=== PATIENT | male | born 2000 | race Caucasian/White ===

== ENCOUNTER 2022-04-11 18:43 | Emergency (ER) | payer BC, MEDICAID, SELFPAY ==
[2022-04-11 18:53] VITALS: BMI 36.0
--- NOTE | 2022-04-11 18:58 | PC.NURSE ---
pt reports he has been having high blood pressure all week. He checked in Tuesday to rehab for alcohol addiction. reports today he was in class and a lady said something disrespectful to the teacher where it set him off and he started yelling and became more anxious. reports after this he went to have some chamomile tea to help relax him. Reports he went to sit in another class and began feeling heavy chested and having difficulty breathing and it worsened when he went to lay down. Reports pain is to upper left chest, described as someone sitting on his chest and felt like he was going to . EMS was called, they started an IV and administered 324 mg ASA. Pt reports he is currently pain free, and denies dyspnea. pt speech clear, and speaking in complete sentences without difficulty. skin pink/warm/dry. lung sounds clear bilat.
--- NOTE | 2022-04-11 19:05 | PC.NURSE ---
reports last alcoholic beverage 04/05. hx of cocaine use, last use 3 weeks ago.
--- NOTE | 2022-04-11 19:15 | PC.NURSE ---
report given to NAOMIE Marx
--- NOTE | 2022-04-11 19:16 | XRR_ITS ---
PROCEDURE INFORMATION: Exam: XR Chest Exam date and time: 04/11/2022 7:26 PM Age: 21 years old Clinical indication: Chest pressure; Patient HX: C/O chest pain. ; Additional info: Cp TECHNIQUE: Imaging protocol: Radiologic exam of the chest. Views: 1 view. COMPARISON: No relevant prior studies available. FINDINGS: Lungs: The lungs are clear. Pleural spaces: Unremarkable. No pleural effusion. No pneumothorax. Heart/Mediastinum: Unremarkable. No cardiomegaly. Bones/joints: Screws are seen in the left glenoid. No acute fracture is visualized. XR/XR chest 1V portable [id number] IMPRESSION: No acute cardiopulmonary abnormality.
--- NOTE | 2022-04-11 19:26 | ED_ITS ---
HPI - Chest Pain General: Chief Complaint: Chest Pain Stated Complaint: CP Time Seen by Provider: 04/11/22 19:15 Source: patient Mode of arrival: ambulatory Limitations: no limitations History of Present Illness: Patient is a 21-year-old male who presents to ED today via EMS for an episode of chest pain that occurred a few hours ago. Patient states he has been having intermittent chest pains on and off for over a year now. He states every once in a while he will notice a single hard beat in his chest. He states he also has a history of anxiety. Patient currently is at [facility] for alcohol detox. He states earlier today during a group meeting he became upset with one of the other members and began feeling very anxious. He states he then had an episode of chest pain and shortness of breath that lasted for a few minutes. He states by the time EMS arrived his symptoms had resolved but decided to still seek medical re-evaluation. No known previous cardiac or pulmonary history. Patient upon arrival is still asymptomatic. Onset (ago): hour(s) Timing of current episode: episodic Onset: other (after stressful event) Pain location: substernal and left chest Pain radiation: none Associated symptoms: Reports no associated symptoms; Deny abdominal pain, dyspnea, fever(s), palpitations or syncope Treatment prior to arrival: none Risk Factors: Coronary artery disease risk factors: none Thoracic aortic dissection risk factors: none Review of Systems Const: Denies: fever(s), chills, body aches, fatigue or malaise Card: Reports: chest pain (resolved now); Denies: palpitations, irregular heart rhythm, edema, swelling of feet/ankles, lightheadedness, syncope, pre-syncope, dyspnea on exertion, orthopnea, leg pain with exertion or acrocyanosis Resp: Denies: dyspnea, productive cough, non-productive cough, pain on inspiration, hemoptysis or chest congestion GI: Denies: abdominal pain Musc: Denies: neck pain Skin/Breast: Denies: rash Neuro: Denies: headache(s) or dizziness Physical Exam Const: COMMON NORMALS: no acute distress, patient oriented x3, no limitations, alert and well nourished GENERAL APPEARANCE: cooperative ORIENTATION/CONSCIOUSNESS: Yes awake, Yes oriented to person, Yes oriented to place and Yes oriented to time Chest: COMMONS NORMALS: normal inspection of the chest and normal palpation of entire chest wall Resp: COMMON NORMALS: normal respiratory effort and clear to auscultation bilaterally AUSCULTATION: clear to auscultation bilaterally Cardio: COMMON NORMALS: regular rate and regular rhythm RATE: regular rate RHYTHM: regular rhythm GI: COMMON NORMALS: Normal to inspection, nondistended, normoactive bowel sounds present, Soft to palpation and non-tender PALPATION: Yes Soft to palpation Extremity: COMMON NORMALS: normal to inspection, capillary refill normal, no joint enlargement, no clubbing, cyanosis or edema, no calf tenderness and no pedal edema GENERAL: Yes normal exam except as noted Neuro: SHANE COMA SCALE: document [facility] findings Shane coma scale eye opening: Spontaneous Shane coma scale verbal response: Orientated [place] coma scale motor response: Obey commands Shane coma scale total score: 15 COMMON NORMALS: patient oriented x3 SENSORIUM/ORIENTATION: Yes alert, Yes oriented to person, Yes oriented to place and Yes oriented to time Skin: COMMON NORMALS: no rashes or lesions noted GENERAL SKIN EXAM: no rashes or lesions noted Course Vital Signs: Vital signs: Vital Signs Pulse Rate 88 04/11/22 20:23 Respiratory Rate 17 04/11/22 20:23 Blood Pressure 170/67 04/11/22 20:23 Pulse Oximetry 96 04/11/22 20:23 MDM - Chest Pain Medical Decision Making Symptoms had completely resolved by the time EMS arrived at [facility]. He has remained asymptomatic since. His EKG is normal (also reviewed by Dr. Coleman). CXR is normal. I would have an extremely low suspicion for true cardiac etiology given his age and lack of risk factors and family history. I do not feel like lab work would be overly beneficial at this time. Patient is stable for DC back to [facility] with return to ED precautions. He states he has a prescription for Vistaril for anxiety and would like to continue taking this. Lab Data Radiology Impressions Chest X-Ray 04/11/22 19:16 IMPRESSION: No acute cardiopulmonary abnormality. Discharge Plan Discharge Patient Disposition: Home Clinical Impression: Anxiety, Non-cardiac chest pain Condition: Stable Discharge Orders: Discharge ED (Routine); Ordered 04/11/22 Ordered By: Darlyn Nova Referrals: Betty Patel MD [Primary Care Provider] - Activity Restrictions/Additional Instructions: You can take 50mg of Vistaril every 4-6 hours as needed for anxiety. Coding Level of Care Code ED [employer] for Enrique Bansal
[2022-04-11] MEDS: hyDROXYzine 25 mg Capsule PO (19:47)
[2022-04-11 20:12] VITALS: BP 170/67; PULSE 88; RESP 17; O2SAT 96
[2022-04-11 20:23] VITALS: BP 170/67; PULSE 88; RESP 17; O2SAT 96
== END 2022-04-11 20:34 | disposition home or self-care (01) ==
PROVIDERS: Emergency Provider Physician Assistant; PCP Pediatrics
DX: R07.89 Other chest pain (principal); F41.9 Anxiety disorder, unspecified
CPT/HCPCS: 71045; 99283